=== PATIENT | male | born 1950 | race Caucasian/White ===

== ENCOUNTER 2020-06-05 14:04 | Emergency (ER) | payer MEDICARE, MEDICAID ==
[~2020-06-05] VITALS: Ht 170.2 cm; Wt 63.5 kg
[2020-06-05 14:14] VITALS: BP 183/96
[2020-06-05] MEDS ORDERED: BACI1PAC6 TP (14:34)
[2020-06-05 15:16] VITALS: BP 171/68
== END 2020-06-05 14:51 | disposition home or self-care (01) ==
LOC: MED 14:04
DX: T23.201A Burn of second degree of right hand, unspecified site, initial encounter (principal); X08.8XXA Exposure to other specified smoke, fire and flames, initial encounter; Y93.89 Activity, other specified; Y92.89 Other specified places as the place of occurrence of the external cause; Y99.8 Other external cause status
CPT/HCPCS: 16000; 99282

== ENCOUNTER 2020-06-10 14:10 | Emergency (ER) | payer MEDICARE, MEDICAID ==
[~2020-06-10] VITALS: Ht 170.2 cm; Wt 63.5 kg
[~2020-06-10 14:10] MED LIST: BACI1PAC6 TP
[2020-06-10 14:19] VITALS: BP_SYST 96
--- NOTE | 2020-06-10 14:24 | NUR ---
PT TAKEN TO ER BED 2.
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
--- NOTE | 2020-06-10 14:28 | NUR ---
SUSHANT Omer at pt bedside for further evaluation.
[2020-06-10 14:59] VITALS: BP 134/80
--- NOTE | 2020-06-10 14:59 | NUR ---
Patient discharged with v/s stable. Written and verbal after care instructions given and explained. Patient verbalized understanding. Ambulatory with steady gait. All questions addressed prior to discharge. Advised to follow up with PMD.
== END 2020-06-10 14:59 | disposition home or self-care (01) ==
LOC: MED 14:10
DX: T23.001D Burn of unspecified degree of right hand, unspecified site, subsequent encounter (principal); Z48.00 Encounter for change or removal of nonsurgical wound dressing; X58.XXXD Exposure to other specified factors, subsequent encounter
CPT/HCPCS: 99281

== ENCOUNTER 2020-06-15 11:04 | Emergency (ER) | payer MEDICARE, MEDICAID ==
--- NOTE | 2020-06-15 11:16 | NUR ---
Patient left without being seen by ERMD.
== END 2020-06-15 23:16 | disposition left against medical advice (07) ==
LOC: MED 11:04
DX: Z53.21 Procedure and treatment not carried out due to patient leaving prior to being seen by health care provider (principal)